=== PATIENT | female | born 1995 | race Caucasian/White ===

== ENCOUNTER 2023-07-03 09:52 | Emergency (ER) | payer OTHER, SELFPAY ==
[2023-07-03] MEDS ORDERED: Ketorolac Tromethamine 30 MG/ML VIAL ONE (11:41)
[2023-07-03] MEDS ORDERED: Cyclobenzaprine 10 MG TAB ONE (11:41)
== END 2023-07-03 12:10 | disposition home or self-care (01) ==
LOC: CSHERS 09:52
DX: M54.50 Low back pain, unspecified (principal)
CPT/HCPCS: 96372; 99283; J1885

== ENCOUNTER 2023-07-11 07:41 | Emergency (ER) | payer SELFPAY | END 2023-07-11 08:26 | disposition home or self-care (01) | LOC: CSHERS 07:41 | DX: S70.261A Insect bite (nonvenomous), right hip, initial encounter (principal); J02.9 Acute pharyngitis, unspecified; W57.XXXA Bitten or stung by nonvenomous insect and other nonvenomous arthropods, initial encounter | CPT/HCPCS: 87081; 87430; 99283 ==